=== PATIENT | female | born 1965 | race Caucasian/White ===

== ENCOUNTER 2025-04-02 14:32 | Emergency (ER) | payer BC ==
[2025-04-02] MEDS ORDERED: Sodium Chloride 0.9% 10 ML Syringe FLUSH PRN (14:38)
[2025-04-02] MEDS: Lactated Ringers 1,000 ML IV ONE (15:49)
[2025-04-02] MEDS: Ondansetron 4 MG/2 ML SDV IVPUSH ONE (15:49)
[2025-04-02 15:53] LABS: BASOPHILS ABSOLUTE AUTO 0.0 x10^3/uL (0.0-0.2); BASOPHILS PERCENT AUTO 0.3 % (0.2-1.2); EOSINOPHILS ABSOLUTE AUTO 0.1 x10^3/uL (0.0-0.5); EOSINOPHILS PERCENT AUTO 1.3 % (0.0-4.0); IMMATURE GRAN ABSOLUTE AUTO 0.02 x10^3/uL (0.00-0.07); IMMATURE GRAN PERCENT AUTO 0.30 % (0.00-0.43); LYMPHOCYTES ABSOLUTE AUTO 1.9 x10^3/uL (1.0-4.8); LYMPHOCYTES PERCENT AUTO 26.8 % (25.0-50.0); MONOCYTES ABSOLUTE AUTO 0.5 x10^3/uL (0.0-0.8); MONOCYTES PERCENT AUTO 6.6 % (2.0-11.0); NEUTROPHILS ABSOLUTE AUTO 4.5 x10^3/uL (1.8-7.7); NEUTROPHILS PERCENT AUTO 64.7 % (50.0-80.0); PLATELET COUNT,PLT 241 x10^3/uL (130-400); RED BLOOD CELL COUNT 3.98 x10^6/uL (4.00-5.50); WHITE BLOOD CELL COUNT,WBC 7.0 x10^3/uL (4.0-10.0)
[2025-04-02 16:01] LABS: INR 1.1 (0.9-1.1)
[2025-04-02 16:06] LABS: A/G RATIO 1.36; ALANINE AMINOTRANSFERASE,ALT 7.0 U/L (14-59); ASPARTATE AMNIOTRANSFERASE,AST 15.0 U/L (15-37); BILIRUBIN TOTAL 0.5 mg/dL (0.2-1.0); BLOOD UREA NITROGEN,BUN 23.0 mg/dL (7-18); CARBON DIOXIDE,CO2 29.0 mmol/L (21-32); CHLORIDE,CL 102.0 mmol/L (98-107); CREATININE 1.1 mg/dL (0.55-1.02); EST CRCL DRUG DOSING (CG) 52.82 mL/min; ESTIMATED GFR 59.0 mL/min (>=60); GLUCOSE RANDOM 107.0 mg/dL (70-99); POTASSIUM,K 3.9 mmol/L (3.5-5.1); PROTEIN TOTAL,TP 6.6 g/dL (6.4-8.2); SODIUM,NA 140.0 mmol/L (136-145)
== END 2025-04-02 16:38 | disposition home or self-care (01) ==
LOC: VM.ED 14:32
DX: R55 Syncope and collapse (principal); Z79.899 Other long term (current) drug therapy; Z88.8 Allergy status to other drugs, medicaments and biological substances
CPT/HCPCS: 36415; 80053; 85025; 85610; 93005; J2405; J7120